=== PATIENT | male | born 1975 | race Caucasian/White ===

== ENCOUNTER 2017-05-22 12:23 | Day surgery (SDC) | payer OTHER ==
[~2017-05-22 12:23] MED LIST: GLYCOPYRROLATE 0.4 MG INJ; LIDOCAINE 2% (SDV) 5 ML INJ; NEOSTIGMINE 3 MG/3 ML SYRINGE
[2017-05-22] MEDS ORDERED: ROPIVACAINE 0.5 % 30 ML VIAL (14:25)
[2017-05-22] MEDS ORDERED: MIDAZOLAM 1 MG/ML 2 ML INJ (14:26)
[2017-05-22] MEDS ORDERED: LACTATED RINGER'S 1,000 ML IV* (14:30)
[2017-05-22] MEDS ORDERED: ROCURONIUM 50 MG INJ (15:06)
[2017-05-22] MEDS ORDERED: CEFAZOLIN 1 GM INJ (15:06)
[2017-05-22] MEDS ORDERED: PROPOFOL 20 ML (15:06)
[2017-05-22] MEDS ORDERED: FENTAnyl 50 MCG/ML VIAL (15:07)
[2017-05-22] MEDS ORDERED: OXYCODONE/ACETAMINOPHEN (5/325) TAB PO (17:00)
[2017-05-22] MEDS ORDERED: SUGAMMADEX SODIUM 200 MG/2 ML VIAL IV (17:08)
== END 2017-05-22 18:50 | disposition home or self-care (01) ==
LOC: SDS 12:23
DX: S52.302A Unspecified fracture of shaft of left radius, initial encounter for closed fracture (principal); S63.015A Dislocation of distal radioulnar joint of left wrist, initial encounter; X58.XXXA Exposure to other specified factors, initial encounter; Y93.89 Activity, other specified; Y92.89 Other specified places as the place of occurrence of the external cause; Y99.8 Other external cause status
CPT/HCPCS: 25515; 73090